=== PATIENT | male | born 1950 | race Caucasian/White ===

== ENCOUNTER → 2019-03-16 | Outpatient (CLI) | payer OTHER | END | disposition home or self-care (01) | LOC: US 06:06 | DX: Z13.9 Encounter for screening, unspecified (principal) ==

== ENCOUNTER → 2023-05-13 | Outpatient (CLI) | payer OTHER | END | disposition home or self-care (01) | LOC: MRI 00:47 | PROVIDERS: ATTEND Internal Medicine | DX: D35.01 Benign neoplasm of right adrenal gland (principal); D44.10 Neoplasm of uncertain behavior of unspecified adrenal gland ==